=== PATIENT | male | born 1995 | race Caucasian/White ===

== ENCOUNTER 2017-01-26 10:33 | Emergency (ER) | payer OTHER ==
--- NOTE | ~2017-01-26 | CT2 ---
[facility] A Service of [facility] RADIOLOGY TEXT RESULTS PATIENT: ORTIZ MCCLENDON LOCATION: SED : 94 UNIT #: [id number] AGE: [address]: ROMEO RESENDIZ SEX: M ORDER DR: [id number] [address] [id number] E MR#: [id number] Acc #: [id number] NAME: ORTIZ MCCLENDON : 1995 SEX: M STUDY DATE/TIME: 01/26/2017 12:10 UNIT: SED ROOM: STUDY DESCRIPTION: CT Abd and Pelv W Cont Attending Physician: Romeo Resendiz Ordering Physician: Romeo Resendiz Primary Care Physician: Hali Liu M.D. MEDICAL IMAGING REPORT This report is preliminary unless electronic signature is present. EXAM CT abdomen and pelvis with contrast, 01/26/2017 12:10 hours HISTORY 21-year-old man complaining of left upper quadrant abdominal pain for 1-2 years worsening today with mid abdominal tenderness. COMPARISON None TECHNIQUE Dynamic helical CT images were obtained from the lung bases through the pubic symphysis with intravenous contrast only. Sagittal and coronal reconstructions were performed. Contrast was Isovue-370 100 mL. Total exam DLP 1050 mGy-cm. This CT exam was performed with one or more of the following radiation dose reduction techniques: automatic exposure control, adjustment of mA and/or kV according to patient size, and iterative reconstruction. FINDINGS Images through the lung bases are clear. There are no effusions. The distal esophagus is normal. Images through the abdomen post contrast demonstrate a normal appearance to the liver, spleen, pancreas, gallbladder and bile ducts. The adrenal glands are normal. The kidneys enhance normally. There is no mass, stone or obstruction. The abdominal aorta is normal in caliber. There is no adenopathy or ascites. The unopacified stomach is only moderately well distended but appears normal. There is no small bowel distension or small bowel wall thickening. The terminal ileum, cecum and appendix are normal. There is no colonic wall thickening. No colonic distension. [facility] A Service of [facility] RADIOLOGY TEXT RESULTS PATIENT: ORTIZ MCCLENDON LOCATION: SED : 94 UNIT #: [id number] AGE: [address]: ROMEO RESENDIZ SEX: M ORDER DR: CT pelvis demonstrates a normal appearance to the bladder, seminal vesicles and prostate. No hernias are seen. Bone window images demonstrate Schmorl's nodes at the L2, L3, L4 vertebral bodies. There is a small limbus vertebra at the anterior inferior endplate of L3 which is likely chronic. No fracture seen. IMPRESSION 1. Negative CT scan of the abdomen and pelvis performed with contrast. 2. Schmorl's nodes are noted in the lumbar spine at multiple levels with a small limbus vertebra at the inferior endplate of L3-8. These findings have a chronic appearance. Dictated by... Fariba Landry M.D. THIS IS AN ELECTRONICALLY VERIFIED REPORT Fariba Landry M.D. at 01/27/2017 9:34 AM Jinny TD: 01/26/2017 17:29 JOB #: [id number] MEDICAL IMAGING REPORT Page 1 of 1
[~2017-01-26 10:33] MED LIST: KEFLEX500 MG PO; LORTAB 5/500 TA1 TA1 PO; MOTRIN600 MG PO; NO MEDICATIONS; STRATTERA80 MG PO
[2017-01-26 10:57] LABS: URINE APPEARANCE CLEAR; URINE BILIRUBIN NEG (NEG); URINE BLOOD NEG (NEG); URINE COLOR YELLOW; URINE GLUCOSE NEG (NORM); URINE KETONE NEG (NEG); URINE LEUKOCYTE ESTERASE NEG (NEG); URINE NITRATE NEG (NEG); URINE PROTEIN NEG (NEG); URINE SOURCE CLEAN CATCH; URINE UROBILINOGEN 0.2 MG/DL (NORM)
[2017-01-26 11:04] LABS: MICRO INDICATED? NO
[2017-01-26 11:37] LABS: BASOPHIL% 0.6 % (0-2.5); EOSINOPHIL# 0.3 X10e3 (0-0.7); EOSINOPHIL% 3.7 % (0.0-7.0); HEMATOCRIT 44.4 % (38.0-50.0); LYMPHOCYTE# 1.7 X10e3 (1.0-3.5); LYMPHOCYTE% 25.2 % (17.0-45.0); MEAN CELL VOLUME 89.8 FL (83-96); MEAN CORPUSCULAR HEMOGLOBIN 30.3 PG (28-34); MEAN CORPUSCULAR HGB CONC 33.7 g/dL (30-36); MEAN PLATELET VOLUME 7.5 FL (6.5-11.5); MONOCYTE# 0.6 X10e3 (0-1.0); MONOCYTE% 8.3 % (3.0-12.0); NEUTROPHIL# 4.3 X10e3 (1.5-7.1); NEUTROPHIL% 62.2 % (40-75); PLATELET COUNT 179 X10e3 (140-420); RED BLOOD COUNT 4.95 X10e (3.90-5.60); RED CELL DISTRIBUTION WIDTH 12.8 % (11.0-15.5); WHITE BLOOD COUNT 6.9 X10e3 (4.0-10.5)
[2017-01-26 11:38] LABS: DIFF IND NO
[2017-01-26 11:58] LABS: ALBUMIN SERUM 4.2 g/dL (3.5-5.0); BILIRUBIN,TOTAL 0.8 mg/dL (0.2-2.0); CALCIUM SERUM 9.1 mg/dL (8.4-10.2); CREATININE SERUM 0.7 mg/dL (0.6-1.4); PROTEIN TOTAL SERUM 6.6 g/dL (6.0-8.3)
== END 2017-01-26 13:13 | disposition home or self-care (01) ==
LOC: SED 10:33
PROVIDERS: Emergency Medicine; Nurse Practitioner
DX: R10.11 Right upper quadrant pain (principal); R10.12 Left upper quadrant pain; F32.9 Major depressive disorder, single episode, unspecified; F17.210 Nicotine dependence, cigarettes, uncomplicated
CPT/HCPCS: 36415; 74177; 80053; 81003; 85025; 96374; 99284; J1885; Q9967